=== PATIENT | male | born 1975 | race Caucasian/White ===

== ENCOUNTER 2016-05-15 23:53 | Emergency (ER) | payer MEDICAID ==
[~2016-05-15] VITALS: Ht 167.6 cm; Wt 68.0 kg
[~2016-05-15 23:53] MED LIST: ALBU17AE4 IH; AMLO10TA4 PO; GABA600T PO; HYDR25TA4 PO; QUET200T PO
[2016-05-16] MEDS ORDERED: IV NS 0.9% 1,000 ML BAG IV ONE
[2016-05-16] MEDS ORDERED: LORAZEPAM INJ 2 MG/ML VIAL IV ONE
[2016-05-16] MEDS ORDERED: HALOPERIDOL LACTATE INJ 5 MG/ML VIAL IM ONE
[2016-05-16] MEDS ORDERED: IV NS 0.9% 1,000 ML ONE (00:08)
[2016-05-16] MEDS ORDERED: LORAZEPAM INJ 2 MG/ML VIAL ONE (00:08)
[2016-05-16] MEDS ORDERED: HALOPERIDOL LACTATE INJ 5 MG/ML VIAL ONE (00:08)
[2016-05-16] MEDS ORDERED: IV SET PRIMARY 1 EA INFUS.SET MC ONE (00:08)
[2016-05-16 00:46] LABS: BASOPHILS % (AUTO) 0.2 % (0.0-2.0); DIFF TOTAL % 100 %; EOSINOPHILS # (AUTO) 0.1 /CMM (0.0-0.7); HEMATOCRIT 35 % (39-51); HEMOGLOBIN 11.8 g/dL (13.5-17.5); LYMPHOCYTES # (AUTO) 2.4 /CMM (0.8-4.8); LYMPHOCYTES % (AUTO) 30.9 % (20.0-44.0); MEAN CORPUSCULAR HEMOGLOBIN 27 PG (26.0-33.0); MEAN CORPUSCULAR HGB CONC 33 g/dl (31.0-36.0); MEAN CORPUSCULAR VOLUME 80 fL (80-96); MONOCYTES # (AUTO) 0.9 /CMM (0.1-1.30); MONOCYTES % (AUTO) 11.8 % (2.0-12.0); NEUTROPHILS # (AUTO) 4.4 /CMM (1.8-8.9); NEUTROPHILS % (AUTO) 56.1 % (43.0-81.0); PLATELET COUNT (AUTO) 340 /CMM (150-450); RED BLOOD CELL COUNT(AUTO) 4.45 MIL/uL (4.5-6.0); WHITE BLOOD COUNT (AUTO) 7.9 K/uL (4.3-11.0)
[2016-05-16 01:03] LABS: ANION GAP 18 (5-14); CARBON DIOXIDE 22 mmol/L (21-32); CHLORIDE 102 mmol/L (98-107); CREATININE 0.8 mg/dL (0.6-1.3); GFR 106 mL/min (>60); GLUCOSE 69 mg/dL (74-106); POTASSIUM 3.2 mmol/L (3.5-5.1); SODIUM SERUM 139 mmol/L (136-145); UREA NITROGEN, BLOOD 24 mg/dL (7-18)
[2016-05-16 01:07] LABS: ALANINE AMINOTRANSFERASE 58 U/L (12-78); ALBUMIN 3.6 g/dL (3.4-5.0); ASPARTATE AMINOTRANSFERASE 51 U/L (15-37); BILIRUBIN,DIRECT 0.2 mg/dL (0.0-0.2); INDIRECT BILIRUBIN 0.8 mg/dL (0.0-1.1); SALICYLATE 3.5 mg/dL (2.8-20.0); TOTAL PROTEIN, SERUM 7.8 g/dL (6.4-8.2)
[2016-05-16 01:08] LABS: ACETAMINOPHEN 0 ug/ml (10-30); THYROID STIMULATING HORMONE 0.754 uIU/mL (0.358-3.74)
[2016-05-16] MEDS ORDERED: IV PREMIX D5 NS + KCL 1,000 ML IV ONE (02:11)
[2016-05-16] MEDS ORDERED: IV PREMIX D5 1/2NS + KCL 1,000 ML IV ONE ×2 (03:27→03:29)
[2016-05-16] MEDS ORDERED: IV SET PRIMARY PUMP SET 1 EA INFUS.SET MC ONE (03:28)
[2016-05-16 04:41] LABS: KETONES,URINE 1+ (NEGATIVE); LEUKOCYTE ESTERASE ,URINE NEGATIVE (NEGATIVE)
[2016-05-16 04:43] LABS: ADD UA MICROSCOPIC YES
[2016-05-16 04:53] LABS: CANNABINOID, URINE NEGATIVE (NEGATIVE); PHENCYCLIDINE SCREEN,URINE NEGATIVE (NEGATIVE)
[2016-05-16 04:59] LABS: ADD URINE CULTURE NO; RBC,URINE 0-2 /HPF (0-2); WBC,URINE 0-2 /HPF (0-3)
[2016-05-16 09:03] VITALS: BP 128/74
== END 2016-05-16 09:04 | disposition home or self-care (01) ==
LOC: ER 05-16 00:22
DX: F15.10 Other stimulant abuse, uncomplicated (principal); F29 Unspecified psychosis not due to a substance or known physiological condition; F31.9 Bipolar disorder, unspecified; F20.9 Schizophrenia, unspecified; F43.10 Post-traumatic stress disorder, unspecified; B19.20 Unspecified viral hepatitis C without hepatic coma; E78.00 Pure hypercholesterolemia, unspecified; F17.200 Nicotine dependence, unspecified, uncomplicated; F19.10 Other psychoactive substance abuse, uncomplicated; Z88.8 Allergy status to other drugs, medicaments and biological substances
CPT/HCPCS: 36415; 80048-TC; 80076-TC; 80305; 81000-TC; 84443-TC; 85025-TC; A4606; G6038-TC; G6039-TC; G6040-TC; J1630; J2060; J3490; J7030; Z7610

== ENCOUNTER 2017-10-23 07:38 | Emergency (ER) | payer OTHER, MEDICAID ==
[~2017-10-23] VITALS: Ht 182.9 cm; Wt 91.6 kg
--- NOTE | 2017-10-23 07:45 | NUR ---
[id number]: ALOC S/P USING METHAMPHETAMINES. OK TO BOOK. BS IN FIELD BY EMS 220. A/OX 2 AT THIS TIME. BREATHING EVEN AND UNLABORED. NO SOB, NAD, VITALS STABLE. SAFETY AND COMFORT MEASURES IN PLACE. AWAITING MD ORDERS.
[2017-10-23] MEDS ORDERED: IV NS 0.9% 1,000 ML BAG IV ONE (08:00)
[2017-10-23] MEDS ORDERED: IV NS 0.9% 1,000 ML IV ONE (08:00)
--- NOTE | 2017-10-23 08:05 | NUR ---
NEW IV STARTED ON RAC, 20G. BLOOD DRAWN AND SENT TO LAB.
[2017-10-23 08:26] LABS: CALCIUM, SERUM 8.5 mg/dL (8.5-10.1); CREATININE 0.7 mg/dL (0.6-1.3); POTASSIUM 3.1 mmol/L (3.5-5.1)
[2017-10-23 08:33] LABS: TROPONIN I < 0.017 ng/mL (0.00-0.056)
[2017-10-23 08:47] LABS: ALBUMIN 3.9 g/dL (3.4-5.0); BILIRUBIN,DIRECT 0.1 mg/dL (0.0-0.2); BILIRUBIN,TOTAL 0.2 mg/dL (0.2-1.0); TOTAL PROTEIN, SERUM 8.3 g/dL (6.4-8.2)
[2017-10-23 09:09] LABS: SALICYLATE 2.6 mg/dL (2.8-20.0)
[2017-10-23 09:11] LABS: CREATINE KINASE MB 3.8 ng/mL (0-3.6); CREATINE KINASE, TOTAL 431 U/L (39-308)
[2017-10-23] MEDS ORDERED: POTASSIUM CHLORIDE 20 MEQ TAB.PRT.SR PO ONE ×2 (09:30→09:32)
[2017-10-23 10:10] LABS: HEMATOCRIT 40 % (39-51); HEMOGLOBIN 13.7 g/dL (13.5-17.5); MEAN CORPUSCULAR HEMOGLOBIN 28 PG (26.0-33.0); MEAN CORPUSCULAR HGB CONC 34 g/dl (31.0-36.0); MEAN CORPUSCULAR VOLUME 82 fL (80-96); PLATELET COUNT (AUTO) 263 /CMM (150-450); RDW COEFFICIENT OF VARIATION 14.4 (11.5-15.0); RED BLOOD CELL COUNT(AUTO) 4.91 MIL/uL (4.5-6.0); WHITE BLOOD COUNT (AUTO) 6.6 K/uL (4.3-11.0)
[2017-10-23 10:11] LABS: BASOPHILS % (AUTO) 0.3 % (0.0-2.0); EOSINOPHILS % (AUTO) 1.4 % (0.0-6.0); LYMPHOCYTES # (AUTO) 1.4 /CMM (0.8-4.8); LYMPHOCYTES % (AUTO) 21.9 % (20.0-44.0); MONOCYTES # (AUTO) 0.2 /CMM (0.1-1.30); MONOCYTES % (AUTO) 3.6 % (2.0-12.0); NEUTROPHILS # (AUTO) 4.8 /CMM (1.8-8.9); NEUTROPHILS % (AUTO) 72.8 % (43.0-81.0)
[2017-10-23 10:30] VITALS: BP 148/90
--- NOTE | 2017-10-23 10:31 | NUR ---
Patient discharged to home in stable condition. Written and verbal after care instructions given. Patient verbalizes understanding of instruction.IV removed. Catheter intact and site benign. Pressure and 4x4 applied to site. No bleeding noted.
== END 2017-10-23 10:32 ==
LOC: ER 07:39
DX: E86.0 Dehydration (principal); F15.10 Other stimulant abuse, uncomplicated; F31.9 Bipolar disorder, unspecified; F20.9 Schizophrenia, unspecified; F43.10 Post-traumatic stress disorder, unspecified; F19.10 Other psychoactive substance abuse, uncomplicated; E78.00 Pure hypercholesterolemia, unspecified; F17.200 Nicotine dependence, unspecified, uncomplicated; F10.10 Alcohol abuse, uncomplicated; E11.9 Type 2 diabetes mellitus without complications; I10 Essential (primary) hypertension; Y90.6 Blood alcohol level of 120-199 mg/100 ml; Z86.19 Personal history of other infectious and parasitic diseases; Z88.8 Allergy status to other drugs, medicaments and biological substances
CPT/HCPCS: 36415; 80048-TC; 80076-TC; 82550-TC; 82553-TC; 84484-TC; 85025-TC; A4606; G0480; J7030; Z7610

== ENCOUNTER 2017-10-26 10:09 | Emergency (ER) | payer MEDICAID, OTHER ==
[~2017-10-26] VITALS: Ht 180.3 cm; Wt 74.8 kg
[2017-10-26 10:22] VITALS: BP 143/91
[2017-10-26 10:50] LABS: BASOPHILS % (AUTO) 0.7 % (0.0-2.0); EOSINOPHILS % (AUTO) 2.7 % (0.0-6.0); HEMATOCRIT 40 % (39-51); HEMOGLOBIN 13.6 g/dL (13.5-17.5); LYMPHOCYTES # (AUTO) 1.6 /CMM (0.8-4.8); LYMPHOCYTES % (AUTO) 29.4 % (20.0-44.0); MEAN CORPUSCULAR HEMOGLOBIN 28 PG (26.0-33.0); MEAN CORPUSCULAR HGB CONC 35 g/dl (31.0-36.0); MEAN CORPUSCULAR VOLUME 81 fL (80-96); MONOCYTES # (AUTO) 0.5 /CMM (0.1-1.30); MONOCYTES % (AUTO) 8.1 % (2.0-12.0); NEUTROPHILS # (AUTO) 3.3 /CMM (1.8-8.9); NEUTROPHILS % (AUTO) 59.1 % (43.0-81.0); PLATELET COUNT (AUTO) 269 /CMM (150-450); RDW COEFFICIENT OF VARIATION 12.9 (11.5-15.0); RED BLOOD CELL COUNT(AUTO) 4.91 MIL/uL (4.5-6.0); WHITE BLOOD COUNT (AUTO) 5.6 K/uL (4.3-11.0)
[2017-10-26 11:23] LABS: CALCIUM, SERUM 8.8 mg/dL (8.5-10.1); CREATININE 0.8 mg/dL (0.6-1.3); POTASSIUM 3.2 mmol/L (3.5-5.1)
[2017-10-26] MEDS ORDERED: MAGNESIUM CHLORIDE 64 MG TABLET.SA PO STA (11:32)
[2017-10-26] MEDS ORDERED: POTASSIUM CHLORIDE 20 MEQ TAB.PRT.SR PO ONE ×2 (11:41→12:00)
== END 2017-10-26 12:03 ==
LOC: ER 10:12
DX: E87.6 Hypokalemia (principal); R53.1 Weakness; I10 Essential (primary) hypertension; J45.909 Unspecified asthma, uncomplicated; E11.9 Type 2 diabetes mellitus without complications; F20.9 Schizophrenia, unspecified; F31.9 Bipolar disorder, unspecified; F43.10 Post-traumatic stress disorder, unspecified; E78.00 Pure hypercholesterolemia, unspecified; F19.10 Other psychoactive substance abuse, uncomplicated; F17.200 Nicotine dependence, unspecified, uncomplicated; Z86.19 Personal history of other infectious and parasitic diseases; Z88.8 Allergy status to other drugs, medicaments and biological substances; Z79.899 Other long term (current) drug therapy
CPT/HCPCS: 36415; 71045; 80048; 85025; 99285; A4606; Z7610

== ENCOUNTER 2019-07-28 22:22 | Emergency (ER) | payer MEDICAID, OTHER ==
[~2019-07-28] VITALS: Ht 182.9 cm; Wt 72.6 kg
[2019-07-28] MEDS ORDERED: IV NS 0.9% 1,000 ML BAG IV ONE (23:00)
[2019-07-28 23:10] LABS: BASOPHILS % (AUTO) 0.6 % (0.0-2.0); EOSINOPHILS % (AUTO) 3.4 % (0.0-6.0); HEMATOCRIT 40 % (39-51); HEMOGLOBIN 13.5 g/dL (13.5-17.5); LYMPHOCYTES # (AUTO) 2.1 /CMM (0.8-4.8); LYMPHOCYTES % (AUTO) 29.5 % (20.0-44.0); MEAN CORPUSCULAR HGB CONC 34 g/dl (31.0-36.0); MEAN CORPUSCULAR VOLUME 82 fL (80-96); MONOCYTES # (AUTO) 0.7 /CMM (0.1-1.30); MONOCYTES % (AUTO) 9.9 % (2.0-12.0); NEUTROPHILS # (AUTO) 4.1 /CMM (1.8-8.9); NEUTROPHILS % (AUTO) 56.6 % (43.0-81.0); PLATELET COUNT (AUTO) 271 /CMM (150-450); RED BLOOD CELL COUNT(AUTO) 4.86 MIL/uL (4.5-6.0); WHITE BLOOD COUNT (AUTO) 7.2 K/uL (4.3-11.0)
[2019-07-28 23:16] LABS: CALCIUM, SERUM 9.4 mg/dL (8.5-10.1); CARBON DIOXIDE 23 mmol/L (21-32); CHLORIDE 103 mmol/L (98-107); CREATININE 0.7 mg/dL (0.6-1.3); GLUCOSE 106 mg/dL (74-106); SODIUM SERUM 139 mmol/L (136-145); UREA NITROGEN, BLOOD 28 mg/dL (7-18)
--- NOTE | 2019-07-28 23:19 | NUR ---
PATIENT CAME TO ER BED 10 BIB RA C/O ANXIETY. PATIENT STATES THAT HE TOOK METH 10 HOURS AGO. PATIENT IS AAOX3. NO SOB. BREATHING EVENLY AND UNLABORED ON ROOM AIR. CONNECTED TO MONITOR.
[2019-07-28 23:22] LABS: ACETAMINOPHEN 0 ug/ml (10-30); ALANINE AMINOTRANSFERASE 31 U/L (12-78); ALBUMIN 4.1 g/dL (3.4-5.0); ALCOHOL, BLOOD < 3 mg/dL (0-0); ALKALINE PHOSPHATASE 95 U/L (46-116); ASPARTATE AMINOTRANSFERASE 24 U/L (15-37); BILIRUBIN,DIRECT 0.2 mg/dL (0.0-0.2); BILIRUBIN,TOTAL 1.1 mg/dL (0.2-1.0); SALICYLATE 1.6 mg/dL (2.8-20.0); TOTAL PROTEIN, SERUM 7.9 g/dL (6.4-8.2)
--- NOTE | 2019-07-28 23:23 | NUR ---
XRAY AT BEDSIDE
[2019-07-28] MEDS ORDERED: LIDOCAINE 2% JEL UROJET 10 ML MM ONE (23:59)
[2019-07-29] MEDS ORDERED: LIDOCAINE 2% JEL UROJET 10 ML MM ONE
--- NOTE | 2019-07-29 00:10 | NUR ---
URINE COLLECTED AND SENT TO LAB.
[2019-07-29 00:16] LABS: APPEARANCE,URINE Clear (CLEAR); BILIRUBIN,URINE SMALL (NEGATIVE); BLOOD, URINE Negative Ery/uL (NEGATIVE); COLOR,URINE Yellow (YELLOW); KETONES,URINE 40 (NEGATIVE); LEUKOCYTE ESTERASE ,URINE Negative (NEGATIVE); NITRITE, URINE Negative (NEGATIVE); PH,URINE 5.5 (5.0-8.0); PROTEIN,URINE Trace mg/dl (NEGATIVE); UGLUCOSE Negative (NEGATIVE); UROBILINOGEN,URINE 0.2 EU/dL (0.2)
[2019-07-29 00:51] LABS: BACTERIA,URINE None seen /HPF (None Seen); RBC,URINE 0-2 /HPF (0-2); SQUAMOUS EPITHELIAL CELL,UR Few /HPF (None Seen); WBC,URINE 0-2 /HPF (0-3)
--- NOTE | 2019-07-29 01:00 | NUR ---
IV removed. Catheter intact and site benign. Pressure and 4x4 applied to site. No bleeding noted.
--- NOTE | 2019-07-29 01:01 | NUR ---
Patient discharged to home in stable condition. Written and verbal after care instructions given. Patient verbalizes understanding of instruction.
[2019-07-29 01:02] VITALS: BP 137/79
== END 2019-07-29 01:04 | disposition home or self-care (01) ==
LOC: ER 22:28
DX: R53.1 Weakness (principal); F15.10 Other stimulant abuse, uncomplicated; J45.909 Unspecified asthma, uncomplicated; I10 Essential (primary) hypertension; E11.9 Type 2 diabetes mellitus without complications; E78.00 Pure hypercholesterolemia, unspecified; Z86.19 Personal history of other infectious and parasitic diseases; Z88.8 Allergy status to other drugs, medicaments and biological substances; Z79.899 Other long term (current) drug therapy
CPT/HCPCS: 36415; 71045; 80048; 80076; 80305; 80307; 80329; 81001; 85025; 99284; G0480; J3490; J7030; 81000-TC

== ENCOUNTER 2019-07-29 10:08 | Emergency (ER) | payer MEDICAID ==
[~2019-07-29] VITALS: Ht 182.9 cm; Wt 72.6 kg
--- NOTE | 2019-07-29 10:20 | NUR ---
, from the street, needs medical clearance prior voluntary admission to [facility], +SI, "overdose on meth" Patient a/ox3, breathing even and unlabored, no sob noted. Needs attended. kept comfortable.
[2019-07-29 10:38] LABS: BASOPHILS % (AUTO) 0.1 % (0.0-2.0); EOSINOPHILS % (AUTO) 4.1 % (0.0-6.0); HEMATOCRIT 39 % (39-51); HEMOGLOBIN 13.1 g/dL (13.5-17.5); LYMPHOCYTES # (AUTO) 1.3 /CMM (0.8-4.8); LYMPHOCYTES % (AUTO) 27.3 % (20.0-44.0); MEAN CORPUSCULAR HGB CONC 34 g/dl (31.0-36.0); MEAN CORPUSCULAR VOLUME 82 fL (80-96); MONOCYTES # (AUTO) 0.4 /CMM (0.1-1.30); MONOCYTES % (AUTO) 7.7 % (2.0-12.0); NEUTROPHILS # (AUTO) 2.9 /CMM (1.8-8.9); NEUTROPHILS % (AUTO) 60.8 % (43.0-81.0); PLATELET COUNT (AUTO) 239 /CMM (150-450); RED BLOOD CELL COUNT(AUTO) 4.76 MIL/uL (4.5-6.0); WHITE BLOOD COUNT (AUTO) 4.8 K/uL (4.3-11.0)
[2019-07-29 10:45] LABS: CALCIUM, SERUM 8.8 mg/dL (8.5-10.1); CARBON DIOXIDE 27 mmol/L (21-32); CHLORIDE 105 mmol/L (98-107); CREATININE 0.8 mg/dL (0.6-1.3); GLUCOSE 135 mg/dL (74-106); POTASSIUM 3.1 mmol/L (3.5-5.1); SODIUM SERUM 141 mmol/L (136-145); UREA NITROGEN, BLOOD 22 mg/dL (7-18)
--- NOTE | 2019-07-29 10:47 | NUR ---
PATIENT GIVEN A URINE CUP. UNABLE TO PROVIDE SAMPLE AT THIS TIME.
[2019-07-29 10:51] LABS: ALANINE AMINOTRANSFERASE 29 U/L (12-78); ALBUMIN 3.6 g/dL (3.4-5.0); ALKALINE PHOSPHATASE 87 U/L (46-116); ASPARTATE AMINOTRANSFERASE 23 U/L (15-37); BILIRUBIN,DIRECT 0.3 mg/dL (0.0-0.2); BILIRUBIN,TOTAL 1.4 mg/dL (0.2-1.0); TOTAL PROTEIN, SERUM 7.2 g/dL (6.4-8.2)
[2019-07-29 10:53] LABS: ALCOHOL, BLOOD < 3 mg/dL (0-0)
[2019-07-29] MEDS ORDERED: LIDOCAINE 2% JEL UROJET 10 ML MM ONE (13:07)
[2019-07-29 13:37] LABS: APPEARANCE,URINE Clear (CLEAR); BILIRUBIN,URINE SMALL (NEGATIVE); BLOOD, URINE Negative Ery/uL (NEGATIVE); COLOR,URINE Yellow (YELLOW); KETONES,URINE 15 (NEGATIVE); LEUKOCYTE ESTERASE ,URINE Negative (NEGATIVE); NITRITE, URINE Negative (NEGATIVE); PH,URINE 5.5 (5.0-8.0); PROTEIN,URINE Negative (NEGATIVE); UGLUCOSE Negative (NEGATIVE)
[2019-07-29 13:54] LABS: RBC,URINE 0-2 /HPF (0-2); WBC,URINE 0-2 /HPF (0-3)
[2019-07-29 13:55] LABS: BACTERIA,URINE Rare /HPF (None Seen); SQUAMOUS EPITHELIAL CELL,UR Few /HPF (None Seen)
[2019-07-29 14:12] LABS: SALICYLATE 0.4 mg/dL (2.8-20.0)
--- NOTE | 2019-07-29 14:48 | NUR ---
CALLED [facility] TO FOLLOW UP. INFORMED THAT THEY HAVE NOT RECIEVED CLINICALS. WILL SEND AGAIN
--- NOTE | 2019-07-29 16:20 | NUR ---
CALLED [facility] [phone] THEY ARE WAITING FOR ETOH LEVEL TO DROP DOWN.
--- NOTE | 2019-07-29 16:31 | NUR ---
ALCOHOL LEVEL IS GOOD AND PT WILL BE RESUBMITTED.
--- NOTE | 2019-07-29 16:33 | NUR ---
PLEASE CALL [facility] FOR REPORT [phone] [facility].
--- NOTE | 2019-07-29 16:59 | NUR ---
REPORT GIVEN TO ANA MORE FOR REPORT AT [facility].
--- NOTE | 2019-07-29 17:48 | NUR ---
CALLED [facility] ETA [address] [facility] ETA [address] [facility] [phone] MAY BE SOONER.
--- NOTE | 2019-07-29 19:32 | NUR ---
PT RECEIVED FROM [facility] [place]. PT SITTING IN BED. AAOX4. NO DISTRESS NOTED
[2019-07-29 20:24] VITALS: BP 150/94
--- NOTE | 2019-07-29 21:35 | NUR ---
[facility] AT BEDSIDE [facility] 2 [facility] STAFF. NAD NOTED. PT IS IN STABLE CINDITION FOR TRANSPORT. REPORT GIVEN
== END 2019-07-29 21:38 ==
LOC: ER 10:11
DX: R45.851 Suicidal ideations (principal); F20.9 Schizophrenia, unspecified; F19.10 Other psychoactive substance abuse, uncomplicated; I10 Essential (primary) hypertension; J45.909 Unspecified asthma, uncomplicated; E11.9 Type 2 diabetes mellitus without complications; F17.200 Nicotine dependence, unspecified, uncomplicated; F43.10 Post-traumatic stress disorder, unspecified; Z91.048 Other nonmedicinal substance allergy status; Z79.899 Other long term (current) drug therapy
CPT/HCPCS: 36415; 80048; 80076; 80305; 80307; 80329; 81001; 85025; 99285; G0480; J3490; 81000-TC

== ENCOUNTER 2019-08-09 23:42 | Emergency (ER) | payer MEDICAID ==
[~2019-08-09] VITALS: Ht 182.9 cm; Wt 72.6 kg
--- NOTE | 2019-08-09 23:45 | NUR ---
CALLED PT FOR TRIAGE. PT NOT IN WAITING ROOM FOR TRAIGE.
--- NOTE | 2019-08-10 | NUR ---
CALLED PT FOR TRIAGE. PT NOT IN WAITING ROOM FOR TRAIGE.
--- NOTE | 2019-08-10 00:09 | NUR ---
CALLED PT FOR TRIAGE. PT NOT IN WAITING ROOM FOR TRAIGE.
--- NOTE | 2019-08-10 00:43 | NUR ---
CALLED PT FOR TRIAGE. PT NOT IN WAITING ROOM FOR TRAIGE.
--- NOTE | 2019-08-10 01:21 | NUR ---
CALLED PT FOR TRIAGE. PT NOT IN WAITING ROOM FOR TRAIGE.
--- NOTE | 2019-08-10 01:41 | NUR ---
PATIENT CAME TO ER BED 10 C/O SUICIDAL IDEATIONPLANS TO OVERDOSE ON DRUGS. PATIENT IS ANXIOUS. PATIENT IS CHANGED OUT OF HIS PERSONAL CLOTHING INTO A GOWN. BELONGINGS PLACED INTO A LOCKER. AAOX4. NO SOB. BREATHING EVENLY AND UNLABORED ON ROOM AIR. Addendum: 08/10/19 at 0230 by JP SITTER AT BEDSIDE.
[2019-08-10] MEDS ORDERED: OLANZAPINE 5 MG/TAB.RAPDIS ONE (01:51)
[2019-08-10] MEDS ORDERED: OLANZAPINE 5 MG/TAB.RAPDIS PO ONE (02:00)
[2019-08-10 02:03] LABS: APPEARANCE,URINE CLEAR (CLEAR); BILIRUBIN,URINE NEGATIVE (NEGATIVE); BLOOD, URINE NEGATIVE Ery/uL (NEGATIVE); COLOR,URINE DARK YELLO (YELLOW); KETONES,URINE NEGATIVE (NEGATIVE); LEUKOCYTE ESTERASE ,URINE NEGATIVE (NEGATIVE); NITRITE, URINE NEGATIVE (NEGATIVE); PH,URINE 5.5 (5.0-8.0); PROTEIN,URINE 30 mg/dl (NEGATIVE); UGLUCOSE NEGATIVE (NEGATIVE); UROBILINOGEN,URINE 0.2 EU/dL (0.2)
[2019-08-10 02:08] LABS: BACTERIA,URINE Few /HPF (None Seen); MUCUS,URINE Moderate /LPF (None Seen); SPERM,URINE Moderate /HPF (None Seen); SQUAMOUS EPITHELIAL CELL,UR Few /HPF (None Seen)
[2019-08-10 02:18] LABS: CARBON DIOXIDE 26 mmol/L (21-32); CHLORIDE 100 mmol/L (98-107); CREATININE 0.8 mg/dL (0.6-1.3); GLUCOSE 111 mg/dL (74-106); SODIUM SERUM 139 mmol/L (136-145); UREA NITROGEN, BLOOD 23 mg/dL (7-18)
[2019-08-10 02:20] LABS: BASOPHILS % (AUTO) 0.3 % (0.0-2.0); EOSINOPHILS % (AUTO) 1.7 % (0.0-6.0); HEMATOCRIT 41 % (39-51); HEMOGLOBIN 13.7 g/dL (13.5-17.5); LYMPHOCYTES # (AUTO) 2.3 /CMM (0.8-4.8); LYMPHOCYTES % (AUTO) 24.4 % (20.0-44.0); MEAN CORPUSCULAR HGB CONC 34 g/dl (31.0-36.0); MEAN CORPUSCULAR VOLUME 81 fL (80-96); MONOCYTES % (AUTO) 10.5 % (2.0-12.0); NEUTROPHILS # (AUTO) 5.8 /CMM (1.8-8.9); NEUTROPHILS % (AUTO) 63.1 % (43.0-81.0); PLATELET COUNT (AUTO) 281 /CMM (150-450); RED BLOOD CELL COUNT(AUTO) 5.01 MIL/uL (4.5-6.0); WHITE BLOOD COUNT (AUTO) 9.2 K/uL (4.3-11.0)
[2019-08-10 02:23] LABS: ALANINE AMINOTRANSFERASE 25 U/L (12-78); ALBUMIN 4.4 g/dL (3.4-5.0); ALKALINE PHOSPHATASE 87 U/L (46-116); ASPARTATE AMINOTRANSFERASE 30 U/L (15-37); BILIRUBIN,DIRECT 0.3 mg/dL (0.0-0.2); BILIRUBIN,TOTAL 1.2 mg/dL (0.2-1.0); TOTAL PROTEIN, SERUM 8.2 g/dL (6.4-8.2)
[2019-08-10 02:36] LABS: ACETAMINOPHEN 0 ug/ml (10-30); ALCOHOL, BLOOD < 3 mg/dL (0-0); SALICYLATE 1.4 mg/dL (2.8-20.0)
[2019-08-10] MEDS ORDERED: POTASSIUM CHLORIDE 20 MEQ TAB.PRT.SR PO ONE ×4 (03:30→05:00)
--- NOTE | 2019-08-10 07:41 | NUR ---
REPORT GIVEN TO [place] MORE FOR [place].
--- NOTE | 2019-08-10 07:46 | NUR ---
ENDORSEMENT RECEIVED FROM KATIE MORE FOR [place]
--- NOTE | 2019-08-10 07:46 | NUR ---
REPORT GIVEN TO DAR MORE AT [facility] FOR [place].
--- NOTE | 2019-08-10 08:00 | NUR ---
breakfast tray provided. tolerated PO well
--- NOTE | 2019-08-10 08:05 | NUR ---
Charlotte espinoza in [facility] - 08/10/19 at 0808 by MARIBEL CALLED [facility] FOR BLS TRANSPORT TO [facility]
--- NOTE | 2019-08-10 08:06 | NUR ---
CALLED [facility] FOR S TRANSPORT TO [facility] ETA [phone]
[2019-08-10 09:08] VITALS: BP 133/86
--- NOTE | 2019-08-10 09:11 | NUR ---
REPORT GIVEN TO EMS FOR PT TRANSFER TO [facility].
--- NOTE | 2019-08-10 09:25 | NUR ---
Patient picked up by RA in stable condition. Patient will be transferred to [facility].
== END 2019-08-10 09:27 ==
LOC: ER 23:42
DX: R45.851 Suicidal ideations (principal); F15.10 Other stimulant abuse, uncomplicated; I10 Essential (primary) hypertension; J45.909 Unspecified asthma, uncomplicated; E11.9 Type 2 diabetes mellitus without complications; F43.10 Post-traumatic stress disorder, unspecified; Z91.048 Other nonmedicinal substance allergy status; Z79.899 Other long term (current) drug therapy
CPT/HCPCS: 36415; 80048; 80076; 80305; 80307; 80329; 81001; 84132; 85025; 99285; G0480; 81000-TC

== ENCOUNTER → 2019-08-23 | Emergency (ER) | payer MEDICAID ==
[~2019-08-23] VITALS: Ht 182.9 cm; Wt 77.1 kg
[2019-08-23 13:19] VITALS: BP 148/84
--- NOTE | 2019-08-23 13:35 | NUR ---
PT REC'D TO ER C/O INFECTION GROIN AREA FOR 3 DAYSAWAITING EVALUATION BY ER PROVIDER.
--- NOTE | 2019-08-23 14:57 | NUR ---
PT. VERBALIZED UNDERSTANDING OF AFTERCARE INSTRUCTIONS.Patient discharged to home in stable condition. Written and verbal after care instructions given. Patient verbalizes understanding of instruction.
== END | disposition home or self-care (01) ==
LOC: ER 13:09
DX: B35.6 Tinea cruris (principal); F31.9 Bipolar disorder, unspecified; F20.9 Schizophrenia, unspecified; J45.909 Unspecified asthma, uncomplicated; I10 Essential (primary) hypertension; Z59.0 Homelessness; Z86.19 Personal history of other infectious and parasitic diseases; Z88.8 Allergy status to other drugs, medicaments and biological substances; Z79.899 Other long term (current) drug therapy